=== PATIENT | female | born 1950 | race Caucasian/White ===

== ENCOUNTER → 2018-10-01 | Outpatient (CLI) | payer MEDICARE ==
[~2018-10-01] MED LIST: AMLO5 PO; ATOR10 PO; Adult Low Dose81 MG PO; CYAN100T2 PO; DOCU100; IBUP800 PO; OXYC5 PO; VALS80 PO; VALSARTAN-HCTZ1 EAC2 PO; WARF4 PO
== END | disposition home or self-care (01) ==
LOC: PLD 15:58 → LAB SHORT 15:58
DX: D48.5 Neoplasm of uncertain behavior of skin (principal)
CPT/HCPCS: 88305

== ENCOUNTER → 2020-04-06 | Outpatient (CLI) | payer MEDICARE ==
[~2020-04-06] MED LIST changes: +ATOR20 PO; +Aspir 8181 MG PO; +DIOVAN HCT 1601 EACH PO
== END ==
LOC: PLD 08:57 → LAB SHORT 08:57
DX: D48.5 Neoplasm of uncertain behavior of skin (principal)
CPT/HCPCS: 88305

== ENCOUNTER 2020-04-08 08:41 | Day surgery (SDC) | payer MEDICARE ==
[~2020-04-08] VITALS: Ht 149.9 cm; Wt 71.8 kg
== END 2020-04-08 10:38 | disposition home or self-care (01) ==
LOC: ORSCSDS 08:41
PROVIDERS: Surgery
PROC: 0DBM8ZX Excision of Descending Colon, Via Natural or Artificial Opening Endoscopic, Diagnostic (ICD-10-PCS; principal; 2020-04-08 10:00)
DX: Z12.11 Encounter for screening for malignant neoplasm of colon (principal); Z86.010 Personal history of colon polyps; D12.4 Benign neoplasm of descending colon; K57.30 Diverticulosis of large intestine without perforation or abscess without bleeding; I10 Essential (primary) hypertension; E78.5 Hyperlipidemia, unspecified; E66.9 Obesity, unspecified; Z68.32 Body mass index [BMI] 32.0-32.9, adult; Z79.82 Long term (current) use of aspirin; Z79.899 Other long term (current) drug therapy
CPT/HCPCS: 88305; J2704; J7120

== ENCOUNTER → 2020-09-07 | Outpatient (CLI) | payer MEDICARE | END | disposition home or self-care (01) | LOC: PLD 12:39 → LAB SHORT 12:39 | DX: D48.5 Neoplasm of uncertain behavior of skin (principal) | CPT/HCPCS: 88305 ==

== ENCOUNTER → 2021-04-06 | Outpatient (CLI) | payer MEDICARE | LOC: LAB 15:17 → LAB SHORT 15:17 | DX: D48.5 Neoplasm of uncertain behavior of skin (principal) | CPT/HCPCS: 88305 ==

== ENCOUNTER 2022-01-04 20:54 | Emergency (ER) | payer MEDICARE ==
[~2022-01-04] VITALS: Ht 149.9 cm; Wt 73.5 kg
[2022-01-04 21:35] LABS: BASOPHILS ABSOLUTE AUTO 0.09 K/mm3 (0.00-0.23); BASOPHILS PERCENT AUTO 1 % (0-2); EOSINOPHILS ABSOLUTE AUTO 0.09 K/mm3 (0.00-0.68); EOSINOPHILS PERCENT AUTO 1 % (0-6); Hematocrit 38.4 % (33.0-51.0); Hemoglobin 14.2 g/dL (11.5-16.0); IMMATURE GRAN ABSOLUTE AUTO 0.09 K/mm3 (0.00-0.10); IMMATURE GRAN PERCENT AUTO 1 % (0-1); LYMPHOCYTES PERCENT AUTO 26 % (21-46); MONOCYTES ABSOLUTE AUTO 0.52 K/mm3 (0.16-1.47); MONOCYTES PERCENT AUTO 5 % (4-13); Mean Corpuscular HGB 30.3 pg (26.0-34.0); Mean Corpuscular Volume 82 fL (80-100); NEUTROPHILS ABSOLUTE AUTO 6.43 K/mm3 (1.96-9.15); NEUTROPHILS PERCENT AUTO 66 % (41-73); RDW Coefficient Variation 12.4 % (11.7-14.2); RDW Standard Deviation 36.9 fL (35.1-46.3); Red Blood Cell Count 4.69 M/mm3 (3.80-5.20); White Blood Cell Count 9.72 K/mm3 (4.00-11.30)
[2022-01-04 21:41] LABS: Mean Platelet Volume 10.8 fL (9.1-12.4); Platelet Count 270 K/mm3 (150-400)
[2022-01-04 21:49] LABS: Albumin/Globulin Ratio 1.2 (0.8-1.8); Bilirubin, Total 0.9 mg/dL (0.1-1.0); Calcium, Blood 9.6 mg/dL (8.5-10.1); Creatinine, Blood 0.64 mg/dL (0.40-1.00); Globulin, Blood 3.2 g/dL (2.2-4.0); Potassium, Blood 3.5 mmol/L (3.5-5.5); Total Protein, Blood 7.2 g/dL (6.4-8.2)
[2022-01-05 02:03] LABS: Source, Urine Clean Catch
[2022-01-05 02:05] LABS: Bilirubin, Urine Neg (Neg); Blood, Urine 1+ (Neg); Glucose Qualitative, Urine Neg (Neg); Ketones, Urine 1+ (Neg); Leukocyte Esterase, Urine 3+ (Neg); Nitrite, Urine Pos (Neg); Protein, Urine Neg (Neg); Specific Gravity, Urine 1.015 (1.003-1.022); Urobilinogen, Urine NORM (Normal)
[2022-01-05 02:16] LABS: Appearance, Urine Hazy (Clear); Bacteria Many /hpf; Color, Urine Yellow (P-Yellow); Red Blood Cells, Urine 0-2 /hpf (0-2); Squamous Epithelial Cells Few /hpf (Few); White Blood Cells, Urine 25-50 /hpf (0-5)
[2022-01-05] MEDS ORDERED: CEFD300 PO (04:30)
== END 2022-01-05 04:39 | disposition home or self-care (01) ==
LOC: ER 20:54
PROVIDERS: Student in an Organized Health Care Education/Training Program
DX: R42 Dizziness and giddiness (principal); N39.0 Urinary tract infection, site not specified; I10 Essential (primary) hypertension; E78.5 Hyperlipidemia, unspecified; Z79.82 Long term (current) use of aspirin; Z79.899 Other long term (current) drug therapy; Z91.040 Latex allergy status; Z91.09 Other allergy status, other than to drugs and biological substances
CPT/HCPCS: 36415; 70450; 80053; 81001; 85025; 93005; 93010; A9270; J0696; J7030

== ENCOUNTER 2025-03-03 08:44 | Day surgery (SDC) | payer OTHER ==
[2025-02-10 10:18] VITALS: BP 115/88
[~2025-03-03] VITALS: Ht 149.9 cm; Wt 73.2 kg
[2025-03-03] VITALS (13 sets, daily range): BP systolic 85–134; BP diastolic 59–91
[~2025-03-03 08:44] MED LIST changes: -ATOR20 PO; +CEFD300 PO; +IRBESARTAN-HCT1 EAC3 PO; +MELO7.5 PO; +Mepivacaine MPF 2% Inj 20 ML Vial INJ SCH
[2025-03-03] MEDS ORDERED: CeFAZolin Sodium 2,000 MG in NS 100 ML IV SCH ×2 (09:30→20:00)
[2025-03-03] MEDS ORDERED: Ropivacaine 0.5% HCl/Pf 123.125 MG,EPINEPHrine HCL 0.25 MG,Ketorolac Tromethamine 15 MG... INFIL SCH (09:30)
[2025-03-03] MEDS ORDERED: Tranexamic Acid 100 ML IV SCH (09:30)
--- NOTE | 2025-03-03 10:00 | NUR ---
AMBULATORY INTO SDS. PT REPORTS 5/10 LEFT KNEE PAIN. PT A&OX3-DENIES NAUSEA. HISTORY AND ALLERGIES REVIEWED. LUNGS CLEAR-SATS 100% ON RA.NPO STATUS CONFIRMED. CHLORHEXIDINE SHOWER AND WIPE X 2.PT PURSE GIVEN TO HER SISTER ENEIDA. PT OTHER BELONGINGS IN BELONGINGS BAG BELOW THE GURNEY.
[2025-03-03] MEDS ORDERED: Chlorhexidine Mouth Care 15 ML UDC MT SCH (11:10)
[2025-03-03] MEDS ORDERED: Magnesium Hydroxide Conc 10 ML UDC PO PRN (11:20)
[2025-03-03] MEDS ORDERED: HYDROmorphone HCl/Pf 1MG SYR IV PRN ×2 (11:25→13:30)
[2025-03-03] MEDS ORDERED: Ondansetron HCl 2 MG / ML 2ML Vial IV PRN ×2 (11:30→13:30)
[2025-03-03] MEDS ORDERED: Metoclopramide HCl 5MG / ML 2ML Vial IV PRN (11:30)
[2025-03-03] MEDS ORDERED: FentaNYL Citrate 50 MCG/ML 2 ML Injection ONE (11:55)
[2025-03-03] MEDS ORDERED: Midazolam HCl 1MG / ML 2ML Vial ONE (11:56)
[2025-03-03] MEDS ORDERED: Dexamethasone Sod Phos 10 MG/ML 1ML VIAL ONE (12:30)
[2025-03-03] MEDS ORDERED: Ondansetron HCl 2 MG / ML 2ML Vial ONE (12:53)
[2025-03-03] MEDS ORDERED: Ketorolac Tromethamine 30mg Vial ONE (12:54)
[2025-03-03] MEDS ORDERED: Phenylephrine HCl 100 MCG/ML-NS 10MLSYR (1MG/10ML) ONE (12:54)
[2025-03-03] MEDS ORDERED: Labetalol HCL 5 MG/ML 4ML Injection (Single Dose) IV PRN (13:30)
[2025-03-03] MEDS ORDERED: Albuterol 2.5 MG/3 ML VIAL INH PRN (13:30)
[2025-03-03] MEDS ORDERED: FentaNYL Citrate 50 MCG/ML 2 ML Injection IV PRN ×2 (13:30→13:35)
[2025-03-03] MEDS ORDERED: ePHEDrine Sulfate 50 MG/ML 1ML Injection IV PRN (13:35)
[2025-03-03] MEDS ORDERED: HYDROmorphone HCl/Pf 1MG SYR ONE (13:38)
[2025-03-03] MEDS ORDERED: Ketorolac Tromethamine 15mg Vial IV SCH (18:00)
--- NOTE | 2025-03-03 20:20 | NUR ---
DISCHARGE SUMMARY POD 0 L TKA. VSS. TOLERATING ORALS, DENIES N/V. VOIDING, PT MISSED HAT x2 FOR ACCURATE MEASUREMENT. ENDORSES PASSING FLATUS. MARY WRAP TO L KNEE C/D/I. AMBULATES USING FWW, STEADY GAIT. PT REPORTS PAIN TOLERABLE c POLAR PACK & MEDICATION PER EMAR. DISCHARGE INSTRUCTIONS GIVEN, PT VERBALIZES UNDERSTANDING. ALL PERSONAL BELONGINGS c PT, INCLUDING POLAR PACK. D/C'd VIA WHEELCHAIR TO POV DRIVEN BY FRIEND.
== END 2025-03-03 20:20 | disposition home or self-care (01) ==
LOC: ORSCMMR 08:44 → ORD 10:00 → ORSCMMR 10:00 → SURS 14:40 → ORSCMMR 20:20
PROVIDERS: Orthopaedic Surgery
PROC: 0SRD0JA Replacement of Left Knee Joint with Synthetic Substitute, Uncemented, Open Approach (ICD-10-PCS; principal; 2025-03-03 10:00)
DX: M17.12 Unilateral primary osteoarthritis, left knee (principal); I10 Essential (primary) hypertension; E78.5 Hyperlipidemia, unspecified; Z79.899 Other long term (current) drug therapy
CPT/HCPCS: 73560-LT; A9270; C1713; C1776; J0166; J0670; J0690; J0735; J1100; J1171; J1885; J2250; J2371; J2405; J2704; J2795; J3010; J7120

== ENCOUNTER 2025-03-10 08:46 | Inpatient (IN) | payer OTHER ==
[2025-03-10] VITALS (9 sets, daily range): BP systolic 96–166; BP diastolic 58–78
[~2025-03-10] VITALS: Ht 149.9 cm; Wt 72.5 kg
[~2025-03-10 08:46] MED LIST changes: +CeFAZolin Sodium 2,000 MG in NS 100 ML IV SCH; +Chlorhexidine Mouth Care 15 ML UDC MT SCH; -Mepivacaine MPF 2% Inj 20 ML Vial INJ SCH; +Ropivacaine 0.5% HCl/Pf 123.125 MG,EPINEPHrine HCL 0.25 MG,Ketorolac Tromethamine 15 MG... INFIL SCH; +Tranexamic Acid 100 ML IV SCH
--- NOTE | 2025-03-10 09:18 | NUR ---
Pre-Op teaching done. Pt verbalizes understanding. History, Chart, Medications and Allergies reviewed before start of procedure. Ambulatory in Day Surgery. Patient confirms NPO status and agrees with scheduled surgery. Patient States Post-Procedure ride home has been arranged. DRESSING TO LEFT KNEE D/I.
[2025-03-10] MEDS ORDERED: HYDROmorphone HCl/Pf 1MG SYR IV PRN ×2 (10:30→12:45)
[2025-03-10] MEDS ORDERED: Metoclopramide HCl 5MG / ML 2ML Vial IV PRN (10:30)
[2025-03-10] MEDS ORDERED: Ondansetron HCl 2 MG / ML 2ML Vial IV PRN ×2 (10:30→12:45)
[2025-03-10] MEDS ORDERED: Magnesium Hydroxide Conc 10 ML UDC PO PRN (10:30)
[2025-03-10] MEDS ORDERED: Bupivacaine 0.75%/Dext 8.25% 2 ML Amp IT ONE (10:52)
[2025-03-10] MEDS ORDERED: Midazolam HCl 1MG / ML 2ML Vial ONE (10:54)
[2025-03-10] MEDS ORDERED: FentaNYL Citrate 50 MCG/ML 2 ML Injection ONE (10:54)
[2025-03-10] MEDS ORDERED: ASPI81CH PO (11:30)
[2025-03-10] MEDS ORDERED: Ketorolac Tromethamine 15mg Vial IV SCH (12:00)
[2025-03-10] MEDS ORDERED: Ketorolac Tromethamine 30mg Vial ONE (12:01)
[2025-03-10] MEDS ORDERED: Dexamethasone Sod Phos 10 MG/ML 1ML VIAL ONE (12:01)
[2025-03-10] MEDS ORDERED: Ondansetron HCl 2 MG / ML 2ML Vial ONE (12:01)
[2025-03-10] MEDS ORDERED: Phenylephrine HCl 100 MCG/ML-NS 10MLSYR (1MG/10ML) ONE (12:01)
[2025-03-10] MEDS ORDERED: FentaNYL Citrate 50 MCG/ML 2 ML Injection IV PRN ×3 (12:40→12:45)
--- NOTE | 2025-03-10 13:32 | NUR ---
ARRIVAL TO SURG FLOOR ADMITTED FOR L TKA REVISION. A&O x4, HRR, LUNGS CLEAR. ABLE TO WIGGLE TOES & LIFT LEG OFF BED. DENIES PAIN AT THIS TIME. INCISION SITE w/TEFLA, TEGADERM & MARY WRAP, NO DRAINAGE, C/D/I. AWAITING POST OP VOID. SNACKS AND DRINKS GIVEN. FAMILY AT BEDSIDE.
--- NOTE | 2025-03-10 18:28 | NUR ---
DISCHARGE SUMMARY ADMITTED ON 03/10 FOR L TKA REVISION. A&O x4, VSS, HRR, LUNGS CLEAR. TOLERATING REGULAR DIET WELL. VOIDED SUCCESSFULLY. WORKED w/THERAPY - AMBULATED IN HALLWAY. PAIN CONTROLLED WELL PER EMAR. DISCHARGE INSTRUCTIONS REVIEWED & GIVEN. POLAR PACK SENT. ESCORTED OUT VIA WC.
[2025-03-10] MEDS ORDERED: CeFAZolin Sodium 2,000 MG in NS 100 ML IV SCH (19:00)
[2025-03-10] MEDS ORDERED: Losartan/HCTZ 50-12.5 TAB PO SCH (21:00)
== END 2025-03-10 18:20 | disposition home or self-care (01) | DRG 468 ==
LOC: SURS 08:46
PROVIDERS: ADMIT Orthopaedic Surgery
PROC: 0SRD0J9 Replacement of Left Knee Joint with Synthetic Substitute, Cemented, Open Approach (ICD-10-PCS; 2025-03-10)
PROC: 0SPD0JZ Removal of Synthetic Substitute from Left Knee Joint, Open Approach (ICD-10-PCS; principal; 2025-03-10 11:00)
DX: T84.023A Instability of internal left knee prosthesis, initial encounter (principal); I10 Essential (primary) hypertension; E78.5 Hyperlipidemia, unspecified; Z90.710 Acquired absence of both cervix and uterus; Z96.653 Presence of artificial knee joint, bilateral; Z79.899 Other long term (current) drug therapy; E66.9 Obesity, unspecified; Z68.32 Body mass index [BMI] 32.0-32.9, adult; Z91.040 Latex allergy status; Z91.048 Other nonmedicinal substance allergy status
CPT/HCPCS: 73560-LT; 97110; 97116; 97162; A9270; J0166; J0690; J0735; J1100; J1885; J2250; J2371; J2405; J2704; J2795; J3010; J7120